=== PATIENT | female | born 1970 | race Caucasian/White ===

== ENCOUNTER 2023-09-04 08:28 | Emergency (ER) | payer OTHER, SELFPAY ==
--- NOTE | ~2023-09-04 | XR_ITS ---
EXAMINATION: XR cervical spine 4-5V DATE: 09/04/2023 09:01 INDICATION: Right posterior neck pain. TECHNIQUE: 4 views of cervical spine were obtained. COMPARISON: None. FINDINGS: There is 5 degrees dextrocurvature of cervicothoracic spine. Vertebral body heights are nor mal. There is mildly decreased disc height at C4-C5 and moderately decreased disc height at C5-6. The re is multilevel uncovertebral joint osteoarthritis, severe bilaterally at C5-C6. There is multilevel facet joint osteoarthritis, moderate to severe on the right at C3-C4. There is mild central canal st enosis at C5-C6. No prevertebral soft tissue swelling. IMPRESSION: 1. Moderate cervical spondylosis. Reviewed, dictated and finalized at location E. [employer]
[2023-09-04 08:38] VITALS: BP 146/86; PULSE 86; RESP 18; TEMP 36.6; O2SAT 100
--- NOTE | 2023-09-04 08:49 | ED.GENADULT ---
HPI - General Adult General Chief complaint: Extremity Injury, Upper Stated complaint: Right Shoulder/Neck Pain History of Present Illness HPI narrative: PATIENT PRESENTS WITH A 3 DAY HISTORY OF RIGHT SIDED NECK PAIN THAT RADIATES TO SHOULDER. NO KNOWN INJURY NO NUMBNESS OR TINGLING PATIENT HAS TAKEN CELEBREX, TRAMADOL AND FLEXARIL WITHOUT ANY RELIEF IN DISCOMFORT. Related Data Home Medications Medication Instructions Recorded Confirmed amlodipine 5 mg tablet mg 09/04/23 celecoxib 200 mg capsule mg 09/04/23 cyclobenzaprine 5 mg tablet mg 09/04/23 hydrocodone 5 mg-acetaminophen 325 tablet 09/04/23 mg tablet lisinopril 20 mg tablet mg 09/04/23 meloxicam 15 mg tablet mg 09/04/23 trazodone 50 mg tablet mg 09/04/23 Allergies Allergy/AdvReac Type Severity Reaction Status Date / Time prochlorperazine Allergy Rash Verified 09/04/23 08:47 [From Compazine] Review of Systems Review of Systems: CONSTITUTIONAL: DENIES FEVER, CHILLS, OR SWEATS. EYES: DENIES VISUAL CHANGES, REDNESS, OR DISCHARGE. ENT: DENIES RHINORRHEA, CONGESTION, SORE THROAT, OR OTALGIA. CARDIOVASCULAR: DENIES CHEST PAIN, PALPITATIONS, OR EDEMA. RESPIRATORY: DENIES COUGH OR DYSPNEA. GASTROINTESTINAL: DENIES ABDOMINAL PAIN, NAUSEA, VOMITING, OR DIARRHEA. GENITOURINARY: DENIES DYSURIA OR HEMATURIA. SKIN: DENIES RASH OR ITCHING. MUSCULOSKELETAL: DENIES BACK PAIN, JOINT PAIN, OR MYALGIA. NEUROLOGIC: DENIES HEADACHE, NUMBNESS, OR WEAKNESS. PSYCHIATRIC: DENIES ANXIETY OR DEPRESSION. PMFSH Comments AT TIME OF SIGNATURE, AGREE WITH NURSING PAST MEDICAL, SURGICAL, SOCIAL AND FAMILY HISTORY. THERE IS NO RELEVANT FAMILY HISTORY PERTINENT TO THE PRESENTING COMPLAINT Exam Narrative: GENERAL: WELL-APPEARING, WELL-NOURISHED, AND IN NO ACUTE DISTRESS. HEAD: NORMOCEPHALIC, ATRAUMATIC. EYES: PERRLA AND EOMI. ENT: NARES CLEAR, NO RHINORRHEA OR EPISTAXIS. MUCOUS MEMBRANES MOIST. NECK: SUPPLE.NO PARASPINAL TENDERNESS, NO VERTEBRAL TENDERNESS OR STEP OFFS. NO SWELLING. NORMAL ROM OF NECK. NORMAL UE STRENGTH AND SENSATION. ? CHEST: CLEAR TO AUSCULTATION. NO RESPIRATORY DISTRESS. HEART: REGULAR RATE AND RHYTHM. NO MURMUR HEARD. NORMAL PERIPHERAL PULSES. ABDOMEN: SOFT, NONTENDER, NONDISTENDED, NORMAL ACTIVE BOWEL SOUNDS. EXTREMITIES: NORMAL RANGE OF MOTION. NO EDEMA. SKIN: WARM, DRY, NO RASH. NEURO: NO FOCAL DEFICITS. ALERT AND ORIENTED X3. JUANA COMA SCALE EYE OPENING: SPONTANEOUS 4 JUANA COMA SCALE MOTOR: OBEYS COMMANDS 6 JUANA COMA SCALE VERBAL: ORIENTED 5 JUANA COMA SCALE TOTAL 15 Course Course Level of Care: Express Care Visit Vital Signs Vital signs: Vital Signs Temperature 36.6 C 09/04/23 08:38 Pulse Rate 86 09/04/23 08:38 Respiratory Rate 18 09/04/23 08:38 Blood Pressure 146/86 H 09/04/23 08:38 Pulse Oximetry 100 09/04/23 08:38 Oxygen Delivery Room Air 09/04/23 08:38 Temperature 36.6 C 09/04/23 08:38 Pulse Rate 86 09/04/23 08:38 Respiratory Rate 18 09/04/23 08:38 Blood Pressure 146/86 H 09/04/23 08:38 Pulse Oximetry 100 09/04/23 08:38 Oxygen Delivery Room Air 09/04/23 08:38 PLEASE ASHELY SCHEDULE A FOLLOWUP VISIT WITH YOUR PERSONAL PHYSICIAN FOR FURTHER EVALUATION AND TREATMENT. INCLUDING RECHECK AND DISCUSSION OF YOUR BLOOD PRESSURE. IF YOUR SYMPTOMS PERSIST, CHANGE OR WORSEN SIGNIFICANTLY BEFORE YOU CAN CONTACT YOUR PERSONAL PHYSICIAN THEN PLEASE, WITHOUT DELAY, GO TO THE EMERGENCY DEPARTMENT FOR FURTHER EVALUATION You likely have a musculoskeletal problem that cannot be completely evaluated and treated today. Further evaluation by your PCP needed if continues. You may need a MRI/physical therapy if symptoms continue or worsen. MRI/physical therapy can help with further diagnostic evaluation and treatment. RICE - rest, ice, compression, anti-inflammatory medication for inflammation-If you have any worsening of symptoms or any other concerns please go to the ED immediately. [facility]
== END 2023-09-04 09:24 | disposition home or self-care (01) ==
PROVIDERS: Emergency Provider Nurse Practitioner Family; PCP Family Medicine
DX: S16.1XXA Strain of muscle, fascia and tendon at neck level, initial encounter (principal); X58.XXXA Exposure to other specified factors, initial encounter; M47.812 Spondylosis without myelopathy or radiculopathy, cervical region; I10 Essential (primary) hypertension
CPT/HCPCS: 72050; 99213; G0463